=== PATIENT | male | born 1950 | race Caucasian/White ===

== ENCOUNTER 2018-08-31 14:06 | Inpatient (IN) | payer OTHER ==
[~2018-08-31] VITALS: Ht 172.7 cm; Wt 87.1 kg
[2018-09-14] MEDS ORDERED: CLONAZEPAM0.5 MG PO (11:31)
[2018-09-22] MEDS ORDERED: PERCOCET 5-3251 EACH PO (09:55)
[2018-09-22] MEDS ORDERED: OMEPRAZOLE20 MG PO (09:55)
[2018-09-22] MEDS ORDERED: INTESTINEX680 M1 PO ×2 (09:55→09:58)
== END 2018-09-22 11:01 | disposition home or self-care (01) | DRG 331 ==
LOC: SURH 09-19 07:00 → O/R 09-19 08:00 → SURH 09-19 08:00 → SURG 09-19 14:50 → SURH 09-19 16:00
PROVIDERS: ADMIT Surgery
PROC: 0DJD8ZZ Inspection of Lower Intestinal Tract, Via Natural or Artificial Opening Endoscopic (ICD-10-PCS; 2018-09-19)
PROC: 3E0F7GC Introduction of Other Therapeutic Substance into Respiratory Tract, Via Natural or Artificial Opening (ICD-10-PCS; 2018-09-19)
PROC: 4A033R1 Measurement of Arterial Saturation, Peripheral, Percutaneous Approach (ICD-10-PCS; 2018-09-19)
PROC: 4A12X4Z Monitoring of Cardiac Electrical Activity, External Approach (ICD-10-PCS; 2018-09-19)
PROC: 0T9B70Z Drainage of Bladder with Drainage Device, Via Natural or Artificial Opening (ICD-10-PCS; 2018-09-19)
PROC: 0DTN4ZZ Resection of Sigmoid Colon, Percutaneous Endoscopic Approach (ICD-10-PCS; principal; 2018-09-19 07:00)
DX: K57.32 Diverticulitis of large intestine without perforation or abscess without bleeding (principal); G47.33 Obstructive sleep apnea (adult) (pediatric); J45.20 Mild intermittent asthma, uncomplicated; F41.8 Other specified anxiety disorders